=== PATIENT | female | born 1985 | race Caucasian/White ===

== ENCOUNTER 2021-11-30 19:12 | Emergency (ER) | payer OTHER ==
[~2021-11-30] VITALS: Ht 157.5 cm; Wt 86.2 kg
[2021-11-30] MEDS ORDERED: TUSNEL LIQUID178 ML PO (23:08)
[2021-11-30] MEDS ORDERED: MEDROLPACK PO (23:08)
[2021-11-30] MEDS ORDERED: PROAIR HFA8.5 GM IH (23:08)
== END 2021-11-30 23:17 | disposition home or self-care (01) ==
LOC: ER 19:12
DX: J06.9 Acute upper respiratory infection, unspecified (principal); Z20.822 Contact with and (suspected) exposure to COVID-19